=== PATIENT | male | born 1985 | race African-American/Black ===

== ENCOUNTER 2022-02-21 09:18 | Emergency (ER) | payer OTHER ==
[~2022-02-21] VITALS: Ht 177.8 cm; Wt 97.0 kg
[2022-02-21 10:30] LABS: BASOPHILS % 0.8 % (0.0-2.0); EOSINOPHILS % 2.8 % (0.0-5.0); HEMOGLOBIN. 14.1 g/dL (14.0-18.0); LYMPHOCYTES % 19.3 % (20.0-50.0); MEAN CORPUSCULAR HEMOGLOBIN 29.3 pg (28.0-32.0); MEAN CORPUSCULAR VOLUME 84.9 fL (80.0-94.0); MEAN PLATELET VOLUME 7.8 fl (7.4-10.4); MONOCYTES % 11.9 % (2.0-8.0); NEUTROPHILS % 65.2 % (40.0-76.0); PLATELET 329 x1000/uL (130-400); RED BLOOD CELL COUNT 4.83 mill/uL (4.7-6.1); RED CELL DISTRIBUTION WIDTH 13.1 % (11.6-14.6)
[2022-02-21 10:44] LABS: CHLORIDE 104 mEq/L (98-107)
[2022-02-21 10:48] LABS: PROTHROMBIN TIME 10.9 sec (9.6-11.0)
[2022-02-21] MEDS ORDERED: HYDR25SU37 RC (12:09)
[2022-02-21 12:54] VITALS: BP 116/78
== END 2022-02-21 12:57 | disposition home or self-care (01) ==
LOC: ER 09:18
DX: K92.1 Melena (principal)
CPT/HCPCS: 36415; 80053; 85025; 99283